=== PATIENT | female | born 1935 | race Caucasian/White ===

== ENCOUNTER 2022-04-09 11:03 | Emergency (ER) | payer MEDICARE, OTHER ==
[2022-04-09] MEDS ORDERED: Doxycycline Monohydrate 100 MG Cap PO ONE (11:04)
[2022-04-09] MEDS ORDERED: Sodium Chloride 0.9% 10 ML Syringe FLUSH PRN (11:28)
[2022-04-09 11:56] LABS: ANION GAP 11.5 mEq/L (7-13); CHLORIDE,CL 103 mmol/L (98-107); SODIUM,NA 141 mmol/L (136-145)
[2022-04-09] MEDS ORDERED: Iopamidol 612 MG/ML 100 ML Bottle IVPUSH ONE (11:59)
[2022-04-09] MEDS ORDERED: Doxycycline Monohydrate 100 MG Cap ONE (13:27)
== END 2022-04-09 13:45 | disposition home or self-care (01) ==
LOC: DL.ED 11:03
DX: L02.211 Cutaneous abscess of abdominal wall (principal); I10 Essential (primary) hypertension; Z79.899 Other long term (current) drug therapy
CPT/HCPCS: 10060; 36415; 74176; 80053; 83605; 85025; 86140; 87040; 96365; 96366; 99283; A9270; J3370; J3490; J7040; 87070